=== PATIENT | male | born 1975 | race Caucasian/White ===

== ENCOUNTER 2024-11-02 07:02 | Emergency (ER) | payer OTHER ==
[~2024-11-02] VITALS: Ht 167.6 cm; Wt 81.8 kg
[2024-11-02 07:44] VITALS: BP 101/61; PULSE 94; RESP 14; TEMP 98.6; O2SAT 98
[2024-11-02 07:51] LABS: COVID AG,FIA SOURCE NASAL SWAB
[2024-11-02 08:23] LABS: INFLUENZA TYPE B NEGATIVE FOR TYPE B (NEGATIVE); SARS-COV2 (COVID) ANTIGEN,FIA Negative (Negative)
[2024-11-02 08:51] LABS: INFLUENZA TYPE A POSITIVE FOR TYPE A (NEGATIVE)
[2024-11-02] MEDS ORDERED: BENZ-227 PO (09:30)
== END 2024-11-02 09:43 | disposition home or self-care (01) ==
LOC: EMS 07:02
DX: J11.1 Influenza due to unidentified influenza virus with other respiratory manifestations (principal); B97.89 Other viral agents as the cause of diseases classified elsewhere; Z20.822 Contact with and (suspected) exposure to COVID-19
CPT/HCPCS: 87804; 99283